=== PATIENT | male | born 1955 | race Caucasian/White ===

== ENCOUNTER 2017-12-17 06:57 | Inpatient (IN) ==
[2017-12-17] MEDS ORDERED: Chlorhexidine Gluconate 2% 1 Pack (2 Cloths) TOPICAL SCH (07:50)
[2017-12-17] MEDS ORDERED: Metoprolol Tartrate 25 MG Tablet PO SCH (07:50)
[2017-12-17] MEDS ORDERED: Dexamethasone Inj 20 MG/5 ML Vial IV.PUSH ONE ×2 (07:51→08:30)
[2017-12-17] MEDS ORDERED: Sodium Chlor 0.9% Inj 500 ML IV.SIG SCH (08:00)
[2017-12-17] MEDS ORDERED: Vancomycin Inj 1,000 MG in Sodium Chlor 0.9% Inj 250 ML IV.SIG SCH (08:00)
[2017-12-17] MEDS ORDERED: Chlorhexidine 4% Topical 120 APPLIC/120 ML Bottle TOPICAL SCH (08:00)
[2017-12-17] MEDS ORDERED: Post-op Orders (for Pharmacy) OTHER STA (08:53)
[2017-12-17] MEDS ORDERED: Bisacodyl 10 MG Supp RECTAL PRN (08:53)
[2017-12-17] MEDS ORDERED: HYDROmorphone PF Inj 1 MG/ML Ampul IV.PUSH PRN (08:53)
[2017-12-17] MEDS ORDERED: Zolpidem Tartrate 5 MG Tablet PO PRN (08:53)
[2017-12-17] MEDS ORDERED: Tranexamic Acid Inj 3,000 MG in Sodium Chlor 0.9% Inj 100 ML P-ARTICULR SCH (09:00)
[2017-12-17] MEDS ORDERED: Sodium Chlor 0.9% Inj 73.07 ML, Ropivacaine 0.5% PF Inj 24.63 ML, Ketorolac Inj 30 MG, ... P-ARTICULR SCH ×5 (09:00)
[2017-12-17] MEDS ORDERED: SODIUM CHLOR 0.9% IV.SIG SCH (09:00)
[2017-12-17] MEDS ORDERED: TRANEXAMIC ACID IV.SIG SCH (09:00)
[2017-12-17] MEDS: ceFAZolin 2 GM Premix Inj 2 GM/50 ML PIGGYBACK IV.SIG SCH ×4 (09:50→20:56)
[2017-12-17] MEDS ORDERED: Glycopyrrolate Inj 1 MG/5 ML Syringe IV.PUSH ONE (09:50)
[2017-12-17] MEDS ORDERED: Succinylcholine Inj 100 MG/5 ML Syringe IV.PUSH ONE (09:50)
[2017-12-17] MEDS ORDERED: Lidocaine PF 1% Inj 5 ML Syringe OTHER ONE (09:50)
[2017-12-17] MEDS ORDERED: Neostigmine Inj 5 MG/5 ML Syringe IV.PUSH ONE (09:50)
[2017-12-17] MEDS ORDERED: *morphine SULFATE 4 MG/ML PERIprocedure ONLY ONE ×3 (12:07→12:34)
[2017-12-17] MEDS ORDERED: fentaNYL Citrate Inj 100 MCG/2 ML Ampul ONE (12:10)
[2017-12-17] MEDS ORDERED: Morphine Inj 4 MG/ML Vial ONE (12:10)
--- NOTE | 2017-12-17 12:45 | XR ---
EXAM DATE: 12/17/2017 12:31 PM EST AGE/SEX: 62 years / Male INDICATIONS: Post-op left knee. CLINICAL DATA: This is the patient's initial encounter. Patient reports that signs and symptoms have been present for 1 day and indicates a pain score of 0/10. MEDICAL/SURGICAL HISTORY: None. None. COMPARISON: No prior exams available for comparison. FINDINGS: Postsurgical changes following left knee replacement are noted. The prosthetic components are well se ated and satisfactorily aligned. Residual air is identified within the joint space. CONCLUSION: Satisfactory postoperative appearance of the left knee status post replacement. Electronically signed by: Agustin Diaz MD 12/17/2017 12:44 PM EST
--- NOTE | 2017-12-17 12:56 | MP ---
cc: Raman Flynn MD DATE OF OPERATION: 12/17/2017 DATE OF PROCEDURE: 12/17/2017. PREOPERATIVE DIAGNOSIS: Left knee osteoarthritis. POSTOPERATIVE DIAGNOSIS: Left knee osteoarthritis. PROCEDURE PERFORMED: Left total knee arthroplasty. SURGEON: Raman Flynn MD. OFFICE CLINICIAN: PHILIP Rosales. ANESTHESIA: General with femoral nerve adductor canal block. ESTIMATED BLOOD LOSS: 100 mL TOURNIQUET TIME: 38 minutes at 250 mmHg. COMPLICATIONS: None. IMPLANTS USED: DePuy Attune size 8 posterior stabilized femoral component, size 7 rotating platform, tibial baseplate, size 8 mm polyethylene tibial insert, size 38 patella. INDICATIONS: The patient is a 62-year-old male with history of severe osteoarthrosis involving the left knee joint. He has severe disabling pain with standing, walking, ambulation, weightbearing activities and severe pain at rest. He has failed greater than 3 months of nonoperative conservative treatment to include medication therapy, injections, ambulatory assistive aides, home exercise program, activity modification. The patient is not overweight. X-ray of the left knee revealed severe osteoarthritis with joint space narrowing, subchondral sclerosis, subchondral cyst, osteophyte formation with deformity and subluxation. The patient was counseled on risks, benefits, and alternatives to a total knee arthroplasty. The risks were discussed, which included, but are not limited to anesthesia, bleeding, infection, damage to nerves and blood vessels, pain, stiffness, failure of components, blood clots pulmonary embolism and even . The patient's pain is severe. He favored the benefits over the risks and did wish to proceed with surgery. PROCEDURE IN DETAIL: Written consent was obtained. The patient was identified by name, taken to the operating room and placed supine on the operating table. General anesthesia was administered to the patient, as well as 2 grams of IV Ancef and 1 gram of IV vancomycin. A well-padded tourniquet was placed on the left thigh. The left lower extremity prepped and draped using isopropyl alcohol, Hibiclens solution and a ChloraPrep solution. After a timeout was performed, Esmarch bandage was used to exsanguinate the left lower extremity and tourniquet inflated to 250 mmHg. A longitudinal incision was made over the anterior aspect of the left knee. A medial parapatellar arthrotomy was performed. The patella was everted and patellar resection guide was used to resect 9 mm of the patella. A 38 mm guide was placed. Three drills were placed and a 30 mm trial fit well. Attention turned to the femur. An intramedullary guide was placed. The distal femoral guide was set to remove 11 mm of distal femur, 5 degrees off the anatomic valgus axis alignment; oscillating saw was used to perform the distal femoral cut. Attention was turned to the tibia. An extramedullary tibial guide was set to remove 6 mm of the lowest portion of medial tibial plateau. Tibial guide was pinned in place; tibia cut was performed. A 5 mm ____ showed full extension. Attention was turned back to the femur where measured a size 8. The anterior reference 3-degree external rotation guide was used to pin a size [address] the anterior, posterior chamfer cuts were performed. A size 8 PCL box was pinned in place with an oscillating saw. The medial and lateral meniscus remnants were removed, as well as bone and soft tissue debris from the posterior portion of the knee. A size 7 tibia base was pinned in place and the tibia was drilled and punched. Trial components were in place. With the current components, the leg could achieve full extension to 0 degrees and flexion to 140. No evidence of tibial liftoff; varus and valgus balance were appropriate and symmetric and the patella was noted to track centrally. With the tourniquet deflated, Bovie cautery was used to obtain hemostasis. The surgical wound was thoroughly irrigated with sterile saline, antibiotic-impregnated solution. The arthrotomy incision was closed with #1-Vicryl suture, subcuticular 2-0 Vicryl suture and skin was closed with Dermabond. Sterile dressing was applied. The patient tolerated the procedure well. No intraoperative complications noted. Guy Polanco, Physician Library Director-Certified, was present during the entire procedure to include patient positioning and the procedure itself. The medical necessity of a physician assistant statistician was indicated in this case due to the complexity of the procedure. He assisted with appropriate manipulation of the leg and also retraction of the muscles, tendon, bone, and neurovascular structures. He assisted with preparation of bone and also manipulation of the prosthetic replacement. MD SARAH Edwards/vanesa/brian , 11:36 AM , 11:47 AM
[2017-12-17] MEDS: Senna/Docusate Sodium 8.6/50 MG Tablet PO SCH ×2 (15:06→21:41)
--- NOTE | 2017-12-17 16:43 | P.CON ---
History of Present Illness Consult date: 12/17/17 Requesting Physician: Raman Flynn Reason for Consult: Medical management Primary Care Provider: Tiff Ramos Chief Complaint: Joint pain History of Present Illness: This is a pleasant 62 y/o Male who was brought in for Left total knee arthroplasty in a patient with Severe Left knee OA, as we know he has Hyperlipidemia, hearing loss, As per patient this pathology started 10 years ago after traumatic event on his left knee. he is with his in the room and denies any Toxic habits and no other pathologies. Review of Systems All other systems reviewed negative except as stated in HPI PMFSH - History History Provided By: Patient, Significant Other - Medical History Medical History: Medical History (Last Reviewed 12/17/17 @ 08:46 by Sienna Daigle) Knee pain, left - Surgical History Surgical History: Surgical History (Last Reviewed 12/17/17 @ 08:46 by Sienna Daigle) H/O arthroscopy of left knee History of prostate surgery - Family History Family History: Family History (Last Updated 12/17/17 @ 16:41 by Celio Lewis MD) Mother Family history of breast cancer Mother Family history of diabetes mellitus Father Family history of hypertension - Tobacco History Second Hand Smoke Exposure: No Tobacco Use In Past 30 Days: Yes Smoking Status: Never smoker Tobacco Type: Cigars - Alcohol History How Often Do You Have a Drink Containing Alcohol: Never - Substance Use History Substance History: No History of Abuse - Travel History Recent Travel in the [place] Within the Last 8 Weeks: No Recent Travel Out of the Country Within the Last 8 Weeks: No - Immunization History Hx Influenza Vaccine This Season: No Medications and Allergies Active Medications: Active Medications Hydrocodone Bitart/Acetaminophen ([place] 7.5/325) 1 tab PO Q4H PRN PRN Reason: PAIN LESS THAN 5 ON SCALE Hydrocodone Bitart/Acetaminophen ([place] 7.5/325) 2 tab PO Q6H PRN PRN Reason: PAIN SCALE 5 TO 10 Last Admin: 12/17/17 14:35 Dose: 2 tab Al Hydroxide/Mg Hydroxide (Milk Of Magnesia Liq) 30 ml PO BID PRN PRN Reason: Mild Constipation Aspirin (Aspirin Chew) 81 mg PO BID [facility] Last Admin: 12/17/17 15:05 Dose: Not Given Bisacodyl (Dulcolax Supp) 10 mg RECTAL DAILY PRN PRN Reason: SEVERE CONSITIPATION Chlorhexidine Gluconate (Chlorhexidine 2% Cloth) 3 pack TOPICAL DIRECTOR FEDER[facility] Stop: 12/17/17 23:59 Last Admin: 12/17/17 07:00 Dose: 3 pack Chlorhexidine Gluconate (Hibiclens 4% Topical) 1 applicatio TOPICAL ONCE [facility] Stop: 12/21/17 07:59 Last Admin: 12/17/17 08:00 Dose: 1 applicatio Diphenhydramine HCl (Benadryl) 25 mg PO Q6H PRN PRN Reason: ITCHING Hydromorphone HCl (Dilaudid Pf Inj) 1 mg IV.PUSH Q3H PRN PRN Reason: BREAKTHROUGH PAIN Sodium Chloride (Ns Inj) 500 mls @ 30 mls/hr IV.SIG .[id number] [facility] Stop: 12/18/17 00:39 Last Admin: 12/17/17 08:30 Dose: Not Given Lactated Ringer's (Lr 1000 Ml Inj) 1,000 mls @ 30 mls/hr IV.SIG .Q24H [facility] Stop: 12/18/17 07:59 Last Admin: 12/17/17 07:45 Dose: 30 mls/hr Vancomycin HCl 1,000 mg/ (Sodium Chloride) 250 mls @ 250 mls/hr IV.SIG DIRECTOR [facility] Stop: 12/20/17 07:51 Last Infusion: 12/17/17 11:13 Dose: Infused Cefazolin Sodium/Dextrose (Ancef 2 Gm Premix Inj) 2 gm in 50 mls @ 100 mls/hr IV.SIG DIRECTOR [facility] Stop: 12/21/17 07:59 Last Admin: 12/17/17 16:09 Dose: 100 mls/hr Cefazolin Sodium/Dextrose (Ancef 2 Gm Premix Inj) 2 gm in 50 mls @ 100 mls/hr IV.SIG Q6H [facility] Stop: 12/18/17 04:29 Lactated Ringer's (Lr 1000 Ml Inj) 1,000 mls @ 80 mls/hr IV.CONT .[id number] [facility] Last Admin: 12/17/17 12:28 Dose: 80 mls/hr Lactulose (Lactulose Liq) 30 ml PO DAILY PRN PRN Reason: SEVERE CONSITIPATION Metoprolol Tartrate (Lopressor) 25 mg PO DIRECTOR [facility] Stop: 12/17/17 23:59 Miscellaneous Information ([facility] [place] [facility] 0 each OTHER UNSCH PRN PRN Reason: SEE LABEL COMMENTS Stop: 12/18/17 12:04 Multivitamins/Minerals (Theragran-M) 1 tab PO BID [facility] Stop: 02/15/18 08:59 Ondansetron HCl (Zofran Inj) 4 mg IV.PUSH Q6H PRN PRN Reason: NAUSEA OR VOMITING Last Admin: 12/17/17 14:34 Dose: 4 mg Povidone Iodine (Betadine 5% Antisepsis Kit) 1 applicatio EACH NARE DIRECTOR [facility] Stop: 12/17/17 23:59 Last Admin: 12/17/17 08:00 Dose: 1 applicatio Povidone Iodine (Betadine 7.5% Scrub) 1 applicatio TOPICAL ONCE [facility] Stop: 12/21/17 07:59 Senna/Docusate Sodium (Kristel-Colace) 1 tab PO BID [facility] Last Admin: 12/17/17 15:06 Dose: Not Given Sennosides (Senokot) 17.2 mg PO BID PRN PRN Reason: Moderate Constipation Sodium Chloride (Ns Flush) 2 ml IV.FLUSH BID [facility] Last Admin: 12/17/17 15:05 Dose: Not Given Sodium Chloride (Ns Flush) 2 ml IV.FLUSH PRN PRN PRN Reason: FLUSH AFTER USING IV ACCESS Zolpidem Tartrate (Ambien) 5 mg PO HS PRN PRN Reason: INSOMNIA Allergies Allergy/AdvReac Type Severity Reaction Status Date / Time codeine AdvReac Nausea Verified 12/17/17 07:48 oak AdvReac Sneezing Verified 12/17/17 07:48 Home Medications Medication Instructions Recorded Confirmed Type No Known Home Medications 12/03/17 12/03/17 History Physical Exam Vital signs: Vital Signs 12/17/17 07:59 12/17/17 09:01 12/17/17 09:37 Temperature 97.8 F Pulse Rate 52 L 59 L 57 L Respiratory Rate 20 18 Blood Pressure 110/66 107/57 L Pulse Oximetry 99 98 98 12/17/17 12:03 12/17/17 12:15 12/17/17 12:20 Temperature 97.1 F L Pulse Rate 103 H 103 H Respiratory Rate 14 14 15 Blood Pressure 154/89 H 151/72 H Pulse Oximetry 95 100 12/17/17 12:30 12/17/17 12:45 12/17/17 12:55 Temperature 97.0 F L Pulse Rate 94 H 80 77 Respiratory Rate 17 15 15 Blood Pressure 153/71 H 144/72 H 133/67 Pulse Oximetry 100 98 98 12/17/17 13:21 Temperature 97.2 F L Pulse Rate 70 Respiratory Rate 17 Blood Pressure 140/67 Pulse Oximetry 96 Intake & Output 12/16/17 12/17/17 12/17/17 18:59 06:59 18:59 Intake Total 949.6 / 949.6 Output Total 100 / 100 Balance 849.6 / 849.6 Weight 84 kg Intake: IV 412.6 / 412.6 Cyklokapron Inj 1,260 MG In NS 112.6 / 112.6 Inj 100 ML @ 200 mls/hr IV.SIG ONCE [facility] Rx#:[id number] Vancomycin Inj 1,000 MG In NS 250 / 250 Inj 250 ML @ 250 mls/hr IV.SIG DIRECTOR [facility] Rx#:[id number] Ancef 2 GM Premix Inj 2 gm In 50 / 50 50 ml @ 100 mls/hr IV.SIG DIRECTOR [facility]AL [facility] Rx#:[id number] Anesthesia Amount 537 / 537 Output: Estimated Blood Loss 100 / 100 Other: Date of Last Bowel Movement 12/17/17 Weight On Admission 84 kg Narrative: GENERAL: This is a well-nourished, well-developed patient, in no apparent distress. CARDIOVASCULAR: Regular rate and rhythm without murmurs, gallops, or rubs. RESPIRATORY: Clear to auscultation. Breath sounds equal bilaterally. No wheezes , rales, or rhonchi. GASTROINTESTINAL: Abdomen soft, non-tender, nondistended. Normal active bowel sounds MUSCULOSKELETAL: Extremities without clubbing, cyanosis, Left knee with Orthotics in place. NEURO: Alert & Oriented x4 to person, place, time, situation. Moves all ext x4 Assessment and Plan - Plan 1. Left Knee OA Status post Left Total knee arthroplasty. by Doctor Raman Flynn. continue Pain medicine, PT and Log Turner for discharge. DVT prophylaxis as per Orthopedic surgery. Code Status: Full code. Discussed Condition With: Patient and his . Discharge Planning: as per Attending physician.
[2017-12-17] MEDS: Multivitamin/Minerals Therapeutic Tablet PO SCH (20:56)
[2017-12-18] MEDS: ceFAZolin 2 GM Premix Inj 2 GM/50 ML PIGGYBACK IV.SIG SCH ×2 (04:42→04:45)
[2017-12-18 05:23] LABS: Hematocrit 34.8 % (39.0-51.0); Hemoglobin 11.8 gm/dL (13.0-17.0)
[2017-12-18 05:33] LABS: Calcium 8.1 mg/dL (8.5-10.1); Carbon Dioxide 27.4 meq/L (21.0-32.0); Potassium 4.3 meq/L (3.5-5.1)
[2017-12-18 05:59] VITALS: RESP 17
--- NOTE | 2017-12-18 08:06 | P.PNOP ---
Subjective Interval history: pain tolerable. doing well. ready to go home. Physical Exam Vital signs: Vital Signs 12/17/17 09:01 12/17/17 09:37 12/17/17 12:03 Temperature 97.1 F L Pulse Rate 59 L 57 L 103 H Respiratory Rate 18 14 Blood Pressure 107/57 L 154/89 H Pulse Oximetry 98 98 95 12/17/17 12:15 12/17/17 12:20 12/17/17 12:30 Temperature Pulse Rate 103 H 94 H Respiratory Rate 14 15 17 Blood Pressure 151/72 H 153/71 H Pulse Oximetry 100 100 12/17/17 12:45 12/17/17 12:55 12/17/17 13:21 Temperature 97.0 F L 97.2 F L Pulse Rate 80 77 70 Respiratory Rate 15 15 17 Blood Pressure 144/72 H 133/67 140/67 Pulse Oximetry 98 98 96 12/17/17 20:10 12/18/17 00:05 12/18/17 04:40 Temperature 97.4 F L 97.6 F 97.5 F L Pulse Rate 71 61 69 Respiratory Rate 17 16 17 Blood Pressure 135/71 109/59 L 120/67 Pulse Oximetry 94 L 96 98 Intake & Output 12/17/17 12/18/17 12/18/17 18:59 06:59 18:59 Intake Total 999.6 / 999.6 880 / 880 1000 / 1000 Output Total 100 / 100 Balance 899.6 / 899.6 880 / 880 1000 / 1000 Weight 84 kg 84 kg Intake: IV 462.6 / 462.6 100 / 100 1000 / 1000 LR 1000 mL Inj 1,000 ML @ 80 1000 / 1000 mls/hr IV.CONT .[id number] [facility] Rx# :[id number] Cyklokapron Inj 1,260 MG In NS 112.6 / 112.6 Inj 100 ML @ 200 mls/hr IV.SIG ONCE [facility] Rx#:[id number] Vancomycin Inj 1,000 MG In NS 250 / 250 Inj 250 ML @ 250 mls/hr IV.SIG [facility] ASST [facility] Rx#:[id number] Ancef 2 GM Premix Inj 2 gm In 100 / 100 100 / 100 50 ml @ 100 mls/hr IV.SIG Q6H [facility] Rx#:[id number] Oral 780 / 780 Anesthesia Amount 537 / 537 Output: Estimated Blood Loss 100 / 100 Other: # Voids 2 4 Date of Last Bowel Movement 12/17/17 12/17/17 Weight On Admission 84 kg Narrative: in bed, nad dressing c/d/i neg eh gallowayi Results - Labs CBC & Chem 7: 12/18/17 04:05 12/18/17 04:05 Laboratory Results - last 24 hr 12/17/17 12/18/17 12/18/17 07:40 04:05 04:05 Hgb 11.8 L Hct 34.8 L Sodium 140 Potassium 4.3 Chloride 105 Carbon Dioxide 27.4 Anion Gap 8 BUN 18 Creatinine 1.16 Estimated GFR 64 L Random Glucose 94 Calcium 8.1 L Blood Type A Positive Blood Type Recheck Required Antibody Screen Negative - Imaging Impressions Knee X-Ray 12/17/17 08:52 CONCLUSION: Satisfactory postoperative appearance of the left knee status post replacement. Assessment and Plan - Ortho Post Op Day # 1 - Assessment and Plan s/p L TKA wbat ok to maintain dressing unless saturated asa 81 d/c planning home with [facility] and pt - cleared today f/up dr. hernandez 2 weeks
--- NOTE | 2017-12-18 08:07 | P.DCO ---
- Physical Therapy Physical Therapy: Gait training, Safety evaluation, Transfer training, bed to chair Knee: Total knee, Protocol: Left, Full weight bearing Left Lower Extremity Weight Bearing: Weight bearing as tolerated - Nursing RN: 3 days/week x 2 weeks Nursing: Dressing changes Dressing changes: Do not change dressing, Daily dressing change - Certification Need for Home Health services: I have seen patient Melissa House JR on 12/18/17. My clinical findings support the need for the requested home health care services because: Need for Home Health Services: Limited ability to care for self, High risk of falls Homebound Certification: I certify that my clinical findings support that this patient is homebound because: Homebound Certification: Post-op weakness, Unsteady gait/balance
[2017-12-18 08:23] VITALS: BP 146/76; PULSE 66; TEMP 98.5; O2SAT 97
[2017-12-18] MEDS: Multivitamin/Minerals Therapeutic Tablet PO SCH (09:12)
[2017-12-18] MEDS: Senna/Docusate Sodium 8.6/50 MG Tablet PO SCH (09:12)
--- NOTE | 2017-12-18 09:23 | P.PN ---
Subjective Interval history: This is a pleasant 62 y/o Male who was brought in for Left total knee arthroplasty in a patient with Severe Left knee OA, as we know he has Hyperlipidemia, hearing loss, As per patient this pathology started 10 years ago after traumatic event on his left knee. he is with his in the room and denies any Toxic habits and no other pathologies. 12/18: Seen in his bedroom, his present, no nausea, vomit or diarrhea, okay to discharge from medicine standpoint. Physical Exam Vital signs: Vital Signs 12/17/17 09:37 12/17/17 12:03 12/17/17 12:15 Temperature 97.1 F L Pulse Rate 57 L 103 H 103 H Respiratory Rate 18 14 14 Blood Pressure 107/57 L 154/89 H 151/72 H Pulse Oximetry 98 95 100 12/17/17 12:20 12/17/17 12:30 12/17/17 12:45 Temperature Pulse Rate 94 H 80 Respiratory Rate 15 17 15 Blood Pressure 153/71 H 144/72 H Pulse Oximetry 100 98 12/17/17 12:55 12/17/17 13:21 12/17/17 20:10 Temperature 97.0 F L 97.2 F L 97.4 F L Pulse Rate 77 70 71 Respiratory Rate 15 17 17 Blood Pressure 133/67 140/67 135/71 Pulse Oximetry 98 96 94 L 12/18/17 00:05 12/18/17 04:40 12/18/17 08:00 Temperature 97.6 F 97.5 F L 98.5 F Pulse Rate 61 69 66 Respiratory Rate 16 17 17 Blood Pressure 109/59 L 120/67 146/76 H Pulse Oximetry 96 98 97 Intake & Output 12/17/17 12/18/17 12/18/17 18:59 06:59 18:59 Intake Total 999.6 / 999.6 880 / 880 1000 / 1000 Output Total 100 / 100 Balance 899.6 / 899.6 880 / 880 1000 / 1000 Weight 84 kg 84 kg Intake: IV 462.6 / 462.6 100 / 100 1000 / 1000 LR 1000 mL Inj 1,000 ML @ 80 1000 / 1000 mls/hr IV.CONT .[id number] [facility] Rx# :[id number] Cyklokapron Inj 1,260 MG In NS 112.6 / 112.6 Inj 100 ML @ 200 mls/hr IV.SIG ONCE [facility] Rx#:[id number] Vancomycin Inj 1,000 MG In NS 250 / 250 Inj 250 ML @ 250 mls/hr IV.SIG INFORMATION TECHNOLOGY DIRECTOR [facility] Rx#:[id number] Ancef 2 GM Premix Inj 2 gm In 100 / 100 100 / 100 50 ml @ 100 mls/hr IV.SIG Q6H [facility] Rx#:[id number] Oral 780 / 780 Anesthesia Amount 537 / 537 Output: Estimated Blood Loss 100 / 100 Other: # Voids 2 4 Date of Last Bowel Movement 12/17/17 12/17/17 Weight On Admission 84 kg Narrative: GENERAL: This is a well-nourished, well-developed patient, in no apparent distress. CARDIOVASCULAR: Regular rate and rhythm without murmurs, gallops, or rubs. RESPIRATORY: Clear to auscultation. Breath sounds equal bilaterally. No wheezes , rales, or rhonchi. GASTROINTESTINAL: Abdomen soft, non-tender, nondistended. Normal active bowel sounds MUSCULOSKELETAL: Extremities without clubbing, cyanosis, Left knee with Orthotics in place. NEURO: Alert & Oriented x4 to person, place, time, situation. Moves all ext x4 Results - Labs CBC & Chem 7: 12/18/17 04:05 12/18/17 04:05 Laboratory Results - last 24 hr 12/18/17 12/18/17 04:05 04:05 Hgb 11.8 L Hct 34.8 L Sodium 140 Potassium 4.3 Chloride 105 Carbon Dioxide 27.4 Anion Gap 8 BUN 18 Creatinine 1.16 Estimated GFR 64 L Random Glucose 94 Calcium 8.1 L - Imaging Impressions Knee X-Ray 12/17/17 08:52 CONCLUSION: Satisfactory postoperative appearance of the left knee status post replacement. - Procedures Left Total knee arthroplasty. by Doctor Raman Flynn.12/17/17 Assessment and Plan - Plan 1. Left Knee OA Status post Left Total knee arthroplasty. by Doctor Raman Flynn. continue Pain medicine, PT and Pig Machine Operator for discharge. Stable okay to discharge as per Orthopedic surgery. DVT prophylaxis on Aspirin Signed off the case. Code Status: Full code. Discussed Condition With: patient, his and nurse Miss Hair Discharge Planning: Hospitalist Clear for discharge
--- NOTE | 2017-12-19 07:27 | MD ---
cc: Raman Flynn MD DATE OF DISCHARGE: 12/18/2017 ADMITTING DIAGNOSIS: Severe degenerative osteoarthritis, left knee. DISCHARGE DIAGNOSIS: Severe degenerative osteoarthritis, left knee. HISTORY OF PRESENT ILLNESS: The patient is a 62-year-old male who presented to the orthopedic clinic for evaluation by Dr. Raman Flynn regarding progressive left knee pain. The patient states the pain has been progressive for numerous years and is currently inhibiting his activities of daily living. He has a severe aching sensation aggravated by weightbearing activities. He has no alleviating factors, although in the past he has tried medications, assistive devices, physical therapy, home exercise program and corticosteroid injection without relief of symptoms. He does have x-ray evidence of severe degenerative osteoarthritis of the left knee. While in the office, the patient was counseled his diagnosis and treatment options. Risks, benefits, and indications were all discussed. The patient did elect to proceed with surgical intervention to include left total knee arthroplasty. DATE OF PROCEDURE: On 12/17/2017, left total knee arthroplasty. POSTOP: After surgery, the patient was admitted to [facility] where he received appropriate medical management, pain control, DVT prophylaxis, as well as physical therapy. DISCHARGE: Once being discharged from the hospital, the patient has been cleared to go home where he will receive home health care and home physical therapy. He is in stable condition. He may weight bear as tolerated. He has been instructed on wound care management. He has been provided prescriptions for pain control and DVT prophylaxis medication. He has been provided a followup appointment approximately 2 weeks from the date of surgery. The patient and the patient's have asked appropriate questions which have been answered. The patient has been discharged. Dictated by PHILIP Rosen Raman Flynn MD JWM/es , 03:48 PM , 03:56 PM
== END 2017-12-18 10:51 | disposition home health service (06) ==
LOC: HSDI 06:57 → N06 13:08
PROVIDERS: ADMIT Orthopaedic Surgery Sports Medicine; ATTEND Orthopaedic Surgery Sports Medicine